=== PATIENT | female | born 1980 | race Caucasian/White ===

== ENCOUNTER → 2016-07-16 | Outpatient (CLI) | payer BC ==
[2016-07-16 18:09] LABS: MEAN CORPUSCULAR HEMOGLOBIN 33.1 pg (27.0-33.0); MEAN CORPUSCULAR HGB CONC 33.9 g/dl (32.0-36.5); MEAN CORPUSCULAR VOLUME 97.7 fl (80.0-96.0); RED CELL DISTRIBUTION WIDTH 13.3 % (11.5-14.5); WHITE BLOOD COUNT 7.9 K/mm3 (4.0-10.0)
== END ==
LOC: M SMT 12:28
PROVIDERS: ATTEND Obstetrics & Gynecology
DX: Z34.82 Encounter for supervision of other normal pregnancy, second trimester (principal)

== ENCOUNTER → 2016-09-12 | Outpatient (REF) | payer BC | LOC: M LAB REF 12:50 | PROVIDERS: ATTEND Obstetrics & Gynecology | DX: Z34.03 Encounter for supervision of normal first pregnancy, third trimester (principal) ==

== ENCOUNTER 2016-10-23 16:00 | Outpatient (CLI) | payer BC ==
[~2016-10-23] VITALS: Ht 162.6 cm; Wt 90.0 kg
[2016-10-23] MEDS ORDERED: VALT500T PO (16:14)
[2016-10-23 16:25] VITALS: BP 120/76
[2016-10-23 18:06] VITALS: BP 117/66
[2016-10-23] MEDS ORDERED: PROMETHAZINE INJ 25 MG/ML VIAL (J2550) IV ONE (20:00)
[2016-10-23] MEDS ORDERED: MORPHINE 10 MG/ML 1ML VIAL IV ONE (20:00)
[2016-10-23] MEDS ORDERED: MORPHINE 10 MG/ML 1ML VIAL SC ONE (20:00)
[2016-10-23 20:58] VITALS: BP 121/63
[2016-10-23 23:14] VITALS: BP 112/60
== END 2016-10-23 23:40 | disposition home or self-care (01) ==
LOC: M LDO 16:00
PROVIDERS: ATTEND Obstetrics & Gynecology
DX: O47.1 False labor at or after 37 completed weeks of gestation (principal); Z3A.40 40 weeks gestation of pregnancy

== ENCOUNTER 2016-10-24 08:40 | Inpatient (IN) | payer BC ==
[2016-10-24] VITALS (43 sets, daily range): BP systolic 99–134; BP diastolic 51–71
[~2016-10-24] VITALS: Ht 162.6 cm; Wt 91.0 kg
[~2016-10-24 08:40] MED LIST: VALT500T PO
--- NOTE | 2016-10-24 09:40 | HPE ---
DATE OF ADMISSION: 10/24/2016 36-year-old, (G) 1, para (P) 0 female at 40 and 3/7 weeks gestation by 6 week ultrasound, expected date of confinement (EDC) 10/21/2016, who presents with regular contractions every 3-4 minutes for the last several hours. She denies vaginal bleeding. There is good movement. The contractions increased in intensity. COURSE: The patient initiated care at 7 weeks gestation on 03/05/2016. Her first trimester blood pressure was 122/70. Weight 170 pounds. She was started on Valtrex for history of genital herpes, but had no outbreaks during the . The remainder of the course was unremarkable. MEDICAL HISTORY: None. SURGICAL HISTORY: None. ALLERGIES: None. SOCIAL HISTORY: The patient is . She denies cigarettes, alcohol or drug use during . FAMILY HISTORY: Noncontributory. PHYSICAL EXAMINATION: Blood pressure 124/78. She appears uncomfortable. Head and Neck Exam: Normal. Lungs: Clear. Heart: Regular rate and rhythm. Abdomen: Nontender. Gravid. heart tones Category 1. Sterile Vaginal Exam: 3 cm, 80% effaced, -2 station, vertex. Contractions every 2-3 minutes. Extremities: Nontender. LABS: Blood type A positive. Rubella immune. RPR nonreactive. Hepatitis B and C negative. HIV negative. Diabetes screen of 84. GBS negative on 09/12/2016. ASSESSMENT: 36-year-old, G1, at 40 and 3/7 weeks gestation who presents in early labor. The patient is admitted on 10/24/2016.
[2016-10-24 10:02] LABS: MEAN CORPUSCULAR HEMOGLOBIN 31.8 pg (27.0-33.0); MEAN CORPUSCULAR HGB CONC 34.4 g/dl (32.0-36.5); MEAN CORPUSCULAR VOLUME 92.4 fl (80.0-96.0); RED CELL DISTRIBUTION WIDTH 14.1 % (11.5-14.5); WHITE BLOOD COUNT 9.7 K/mm3 (4.0-10.0)
[2016-10-24] MEDS ORDERED: FENTANYL 2MCG/ML ROPIVACAINE 0.2% IN 0.9% NACL 200ML IVBAG As Ordered ONE (11:13)
[2016-10-24] MEDS ORDERED: FENTANYL/ROPIVACAINE/NACL BAG 200 ML EPIDURAL SCH (12:30)
[2016-10-24] MEDS ORDERED: REFRIGERATOR IV KEYS XX PRN (12:30)
[2016-10-24] MEDS ORDERED: EPIDURAL COMMENT XX SCH (12:30)
[2016-10-24] MEDS ORDERED: ePHEDrine SULFATE 25 MG/5 ML(5MG/ML) SYRINGE IV PRN (12:30)
[2016-10-24] MEDS ORDERED: ONDANSETRON 4MG/2ML VIAL (J2405) IV PRN (12:30)
[2016-10-24] MEDS ORDERED: diphenhydrAMINE INJ 50MG/ML VIAL (J1200) IV PRN (12:30)
[2016-10-24] MEDS ORDERED: NALOXONE INJ 0.4 MG/1 ML VIAL (J2310) IV PRN (12:30)
[2016-10-24] MEDS ORDERED: OXYTOCIN DRIP 30 UNITS in APPROPRIATE DILUENT 1 EA IV SCH (12:30)
[2016-10-24] MEDS ORDERED: LACTATED RINGER'S 1000 ML IV PRN (12:30)
[2016-10-24] MEDS ORDERED: EPIDURAL/PCA KEYS XX PRN (12:30)
[2016-10-24] MEDS ORDERED: LR 1,000 ML IV SCH (17:30)
[2016-10-25] VITALS (9 sets, daily range): BP systolic 109–127; BP diastolic 53–66
[2016-10-25] MEDS ORDERED: METHYLERGONOVINE MALEATE 0.2 MG/ML VIAL (J2210) As Ordered ONE (00:19)
[2016-10-25 00:58] LABS: CORD GAS ABE V -6.5; CORD GAS HCO3 V 16.6 MEQ/L; CORD GAS O2 SAT V 89.5 %; CORD GAS PCO2 V 26.8 mmHg; CORD GAS PH V 7.41 UNITS; CORD GAS PO2 V 45.4 mmHg; CORD GAS SBC V 19.1 MEQ/L; CORD GAS TCO2 V 17.4 MEQ/L
[2016-10-25] MEDS ORDERED: ONDANSETRON 4MG/2ML VIAL (J2405) IV PRN (01:00)
[2016-10-25] MEDS ORDERED: RHOGAM 300 MCG (1500 IU) INJ (J2790) IM SCH (01:00)
[2016-10-25] MEDS ORDERED: OXYTOCIN DRIP 30 UNITS in APPROPRIATE DILUENT 1 EA IV ONE (01:00)
[2016-10-25] MEDS ORDERED: MEASLES,MUMPS,RUBELLA VACCINE INJ (MMR-II) (90707) SC SCH (01:00)
[2016-10-25] MEDS ORDERED: DIBUCAINE 1% OINTMENT 30GM TOP PRN (01:00)
[2016-10-25] MEDS ORDERED: METHYLERGONOVINE MALEATE 0.2 MG/ML VIAL (J2210) IM ONE (01:00)
[2016-10-25] MEDS ORDERED: DOCUSATE SODIUM 100 MG CAP PO PRN (01:00)
[2016-10-25] MEDS ORDERED: miSOPROStol 200 MCG TAB (S0191) PR ONE (01:00)
[2016-10-25] MEDS ORDERED: METHYLERGONOVINE MALEATE 0.2 MG TAB PO PRN (01:00)
[2016-10-25] MEDS ORDERED: ACETAMINOPHEN 500 MG TAB PO PRN (01:00)
[2016-10-25 01:01] LABS: CORD GAS ABE A -5.8; CORD GAS HCO3 A 16.3 MEQ/L; CORD GAS O2 SAT A 83.5 %; CORD GAS PCO2 A 25.4 mmHg; CORD GAS PH A 7.426 UNITS; CORD GAS PO2 A 38.7 mmHg; CORD GAS SBC A 19.5 MEQ/L; CORD GAS TCO2 A 17.1 MEQ/L
[2016-10-25] MEDS: IBUPROFEN 800 MG TAB PO PRN ×2 (02:02→11:29)
--- NOTE | 2016-10-25 06:21 | DN ---
DATE: 10/24/2016 PREDELIVERY DIAGNOSIS: 40 plus weeks gestation in labor. POSTDELIVERY DIAGNOSIS: 40 plus weeks gestation in labor. PROCEDURE: Spontaneous vaginal delivery. CONTRACT ADMINISTRATION COORDINATOR: Dr. Abner Nance. ANESTHESIA: Epidural. ESTIMATED BLOOD LOSS: 600 mL. FINDINGS: 9 pound, 10 ounce female infant, scores 6 and 9, 4300 grams. DELIVERY SUMMARY: After approximately 60 minutes second stage, the patient spontaneously delivered a 9 pound 10 ounce female infant, scores 6 and 9, under epidural anesthesia. Nuchal cord times one was reduced. Shoulders delivered spontaneously with ease. The infant cried spontaneously and was handed to the mother. The cord was doubly clamped and cut. The placenta delivered spontaneously and appeared to be intact. The patient received intravenous (IV) Pitocin immediately after delivery of the placenta. Excess bleeding was encountered, intrauterine and the blood clot was manually removed from the lower uterine segment. The patient received Methergine 0.2 mg intramuscular (IM) and Cytotec 800 mcg per rectum. Bleeding improved. Estimated blood loss was 600 mL. First-degree perineal laceration was repaired with interrupted suture of 2-0 chromic. Sponge, needle and instrument counts were correct.
[2016-10-25] MEDS: PRENATAL VITAMIN TAB PO SCH (09:24)
[2016-10-26 05:50] VITALS: BP 113/69
[2016-10-26] MEDS: PRENATAL VITAMIN TAB PO SCH (08:06)
[2016-10-26] MEDS ORDERED: PRENTAB9 PO (08:28)
[2016-10-26] MEDS ORDERED: IBUP-1114 PO (08:28)
[2016-10-26] MEDS ORDERED: ACET50TA PO (08:28)
== END 2016-10-26 10:42 | disposition home or self-care (01) | DRG 560 ==
LOC: M LDI 08:40 → M OBS 10-25 02:55
PROVIDERS: ADMIT Specialist; ATTEND Specialist
PROC: 10E0XZZ Delivery of Products of Conception, External Approach (ICD-10-PCS; principal; 2016-10-24)
PROC: 0HQ9XZZ Repair Perineum Skin, External Approach (ICD-10-PCS; 2016-10-24)
DX: O48.0 Post-term pregnancy (principal); O69.82X0 Labor and delivery complicated by other cord entanglement, without compression, not applicable or unspecified; Z37.0 Single live birth; Z3A.40 40 weeks gestation of pregnancy; O70.0 First degree perineal laceration during delivery

== ENCOUNTER 2017-08-04 09:58 | Emergency (ER) | payer BC ==
[2017-08-04 10:52] LABS: BASO % 0.4 % (0.0-1.0); EOS # 0.1 10^3/uL (0.0-0.50); EOS % 0.9 % (0.0-3.0); HEMATOCRIT 36.9 % (36.0-47.0); HEMOGLOBIN 12.2 g/dl (12.0-16.0); IMMATURE GRANULOCYTE % 0.4 % (0-3.0); LYMPH # 2.4 10^3/uL (1.5-4.5); LYMPH % 32.4 % (24.0-44.0); MEAN CORPUSCULAR HEMOGLOBIN 28.8 pg (27.0-33.0); MEAN CORPUSCULAR HGB CONC 33.1 g/dl (32.0-36.5); MONO # 0.5 10^3/uL (0.0-0.8); NEUTROPHILS # 4.5 10^3/uL (1.8-7.7); NEUTROPHILS % 59.9 % (36.0-66.0); PLATELET COUNT, AUTOMATED 273 10^3/uL (150-450); RED BLOOD COUNT 4.24 10^6/uL (4.00-5.40); RED CELL DISTRIBUTION WIDTH 14.2 % (11.5-14.5); WHITE BLOOD COUNT 7.5 10^3/uL (4.0-10.0)
[2017-08-04 10:59] LABS: APPEARANCE, URINE CLEAR (CLEAR); BACTERIA, URINE AUTO NEGATIVE (NEGATIVE); BILIRUBIN, URINE AUTO NEGATIVE (NEGATIVE); BLOOD, URINE BLOOD NEGATIVE (NEGATIVE); COLOR, URINE YELLOW (YELLOW); GLUCOSE, URINE (UA) AUTO NEGATIVE (NEGATIVE); KETONE, URINE AUTO NEGATIVE (NEGATIVE); LEUKOCYTE ESTERASE, URINE AUTO NEGATIVE (NEGATIVE); MUCUS, URINE SMALL (NEGATIVE); NITRITE, URINE AUTO NEGATIVE (NEGATIVE); PROTEIN, URINE AUTO NEGATIVE (NEGATIVE); RBC, URINE AUTO 1 /HPF (0-3); SPECIFIC GRAVITY URINE AUTO 1.028 (1.002-1.035); SQUAMOUS EPITHELIAL CELL UR AU 0 /HPF (0-6); UROBILINOGEN, URINE AUTO 0.2 mg/dL (0.0-2.0); WBC, URINE AUTO 0 /HPF (0-3)
[2017-08-04 11:30] LABS: ANION GAP 7 MEQ/L (8-16); BLOOD UREA NITROGEN 14 MG/DL (7-18); CALCIUM LEVEL 8.6 MG/DL (8.5-10.1); CARBON DIOXIDE LEVEL 26 MEQ/L (21-32); CHLORIDE LEVEL 105 MEQ/L (98-107); CREATININE FOR GFR 0.56 MG/DL (0.55-1.30); GLOMERULAR FILTRATION RATE > 60.0 (>60); GLUCOSE, FASTING 79 MG/DL (70-100); HCG, SERUM QUANTITATIVE 152774 MIU/ML; POTASSIUM SERUM 4.1 MEQ/L (3.5-5.1); SODIUM LEVEL 138 MEQ/L (136-145)
[2017-08-04 11:59] LABS: CONTROL LINE UCG INT CTR LINE PRESENT; URINE PREG TEST NEGATIVE (NEGATIVE)
== END 2017-08-04 12:17 | disposition home or self-care (01) ==
LOC: M ED 09:58
DX: O20.8 Other hemorrhage in early pregnancy (principal); O09.521 Supervision of elderly multigravida, first trimester; Z3A.01 Less than 8 weeks gestation of pregnancy; Z79.899 Other long term (current) drug therapy
CPT/HCPCS: 76801

== ENCOUNTER → 2017-10-01 | Outpatient (CLI) | payer BC ==
[2017-10-01 15:26] LABS: BASO % 0.3 % (0.0-1.0); EOS # 0.2 10^3/uL (0.0-0.50); EOS % 2.6 % (0.0-3.0); HEMATOCRIT 33.2 % (36.0-47.0); HEMOGLOBIN 11.2 g/dl (12.0-15.5); IMMATURE GRANULOCYTE % 0.3 % (0-3.0); LYMPH # 2.7 10^3/uL (1.5-4.5); LYMPH % 33.9 % (24.0-44.0); MEAN CORPUSCULAR HGB CONC 33.7 g/dl (32.0-36.5); MONO # 0.4 10^3/uL (0.0-0.8); MONO % 5.1 % (0.0-5.0); NEUTROPHILS # 4.6 10^3/uL (1.8-7.7); NEUTROPHILS % 57.8 % (36.0-66.0); PLATELET COUNT, AUTOMATED 260 10^3/uL (150-450); RED BLOOD COUNT 3.73 10^6/uL (4.00-5.40); RED CELL DISTRIBUTION WIDTH 14.1 % (11.5-14.5)
[2017-10-01 16:49] LABS: CHLAMYDIA DNA AMPLIFICATION NEGATIVE (NEGATIVE); GC DNA AMPLIFICATION NEGATIVE (NEGATIVE)
[2017-10-03 11:53] LABS: RUBELLA IgG QUALITATIVE IMMUNE (IMMUNE)
[2017-10-03 11:59] LABS: HBsAg Prenatal NEGATIVE (NEGATIVE)
[2017-10-03 12:23] LABS: HIV 1&2 SCREEN CENTAUR NEGATIVE (NEGATIVE)
== END ==
LOC: M WUC 13:26
DX: Z34.81 Encounter for supervision of other normal pregnancy, first trimester (principal)
CPT/HCPCS: 86762

== ENCOUNTER → 2017-10-16 | Outpatient (CLI) | payer BC ==
[2017-10-16 13:39] LABS: HEMATOCRIT 33.8 % (36.0-47.0); HEMOGLOBIN 11.3 g/dl (12.0-15.5); MEAN CORPUSCULAR HEMOGLOBIN 30.5 pg (27.0-33.0); MEAN CORPUSCULAR HGB CONC 33.4 g/dl (32.0-36.5); MEAN CORPUSCULAR VOLUME 91.1 fl (80.0-96.0); PLATELET COUNT, AUTOMATED 204 10^3/uL (150-450); RED BLOOD COUNT 3.71 10^6/uL (4.00-5.40); WHITE BLOOD COUNT 9.1 10^3/uL (4.0-10.0)
== END ==
LOC: M SMT 08:17
DX: Z34.82 Encounter for supervision of other normal pregnancy, second trimester (principal)
CPT/HCPCS: 85027

== ENCOUNTER → 2017-11-20 | Outpatient (CLI) | payer BC | LOC: M RAD 11:12 | DX: Z34.82 Encounter for supervision of other normal pregnancy, second trimester (principal) ==

== ENCOUNTER 2017-12-09 04:02 | Inpatient (IN) | payer BC ==
[2017-12-09] MEDS ORDERED: MAGNESIUM *L&D* 4 GM/100 ML BAG (40MG/ML) (J3475) As Ordered (05:06)
[2017-12-09] MEDS ORDERED: MAGNESIUM SULFATE 4% INJ 20GM/500ML (40MG/ML) (J3475) As Ordered (05:06)
[2017-12-09] MEDS: MAG Sulf (L&D) 4 GM/100 ML 4 GM in APPROPRIATE DILUENT 1 EA IV (05:17)
[2017-12-09] MEDS ORDERED: CALCIUM GLUCONATE 1,000 MG in D5W MINI-BAG PLUS 100 ML IV (05:30)
[2017-12-09] MEDS: MAG Sulf (OBGYN) 20GM/500ML 20,000 MG in APPROPRIATE DILUENT 1 EA IV (05:43)
[2017-12-09] MEDS: LR 1,000 ML IV ×2 (05:43→11:10)
[2017-12-09] MEDS: BETAMETHASONE SOLUSPAN 6MG/ML INJ 5ML (J0702) IM (05:53)
[2017-12-09] MEDS: AMPICILLIN SOD 2 GM in D5W MINI-BAG PLUS 100 ML IV (06:43)
[2017-12-09] MEDS: AZITHROMYCIN 250 MG TAB PO (06:44)
[2017-12-09 06:59] LABS: APPEARANCE, URINE CLEAR (CLEAR); BACTERIA, URINE AUTO NEGATIVE (NEGATIVE); BILIRUBIN, URINE AUTO NEGATIVE (NEGATIVE); BLOOD, URINE BLOOD NEGATIVE (NEGATIVE); COLOR, URINE YELLOW (YELLOW); GLUCOSE, URINE (UA) AUTO NEGATIVE (NEGATIVE); KETONE, URINE AUTO 1+ mg/dL (NEGATIVE); LEUKOCYTE ESTERASE, URINE AUTO NEGATIVE (NEGATIVE); MUCUS, URINE SMALL (NEGATIVE); NITRITE, URINE AUTO NEGATIVE (NEGATIVE); PROTEIN, URINE AUTO NEGATIVE (NEGATIVE); RBC, URINE AUTO 3 /HPF (0-3); SPECIFIC GRAVITY URINE AUTO 1.015 (1.002-1.035); SQUAMOUS EPITHELIAL CELL UR AU 0 /HPF (0-6); UROBILINOGEN, URINE AUTO 0.2 mg/dL (0.0-2.0); WBC, URINE AUTO 1 /HPF (0-3)
[2017-12-09] MEDS: ONDANSETRON 4MG/2ML VIAL (J2405) IV (07:49)
[2017-12-09 08:11] LABS: HEMATOCRIT 32.8 % (36.0-47.0); MEAN CORPUSCULAR HEMOGLOBIN 29.9 pg (27.0-33.0); MEAN CORPUSCULAR HGB CONC 33.5 g/dl (32.0-36.5); MEAN CORPUSCULAR VOLUME 89.1 fl (80.0-96.0); PLATELET COUNT, AUTOMATED 253 10^3/uL (150-450); RED BLOOD COUNT 3.68 10^6/uL (4.00-5.40); RED CELL DISTRIBUTION WIDTH 12.5 % (11.5-14.5); WHITE BLOOD COUNT 15.8 10^3/uL (4.0-10.0)
[2017-12-09] MEDS: BUTORPHANOL 2 MG/ML INJ (J0595) IV (08:15)
[2017-12-09] MEDS: PROMETHAZINE INJ 25 MG/ML VIAL (J2550) IV (08:15)
[2017-12-09] MEDS ORDERED: BICITRA 30ML SOLN UDC As Ordered (08:36)
[2017-12-09] MEDS ORDERED: PORACTANT ALFA 80MG/ML 1.5 ML VIAL(CUROSURF) As Ordered (08:36)
[2017-12-09] MEDS ORDERED: ceFAZolin 2 GM/D5W 50 ML IV BAG (J0690 PER 500MG) As Ordered (08:36)
[2017-12-09] MEDS ORDERED: ONDANSETRON 4MG/2ML VIAL (J2405) As Ordered (08:40)
[2017-12-09] MEDS ORDERED: OXYTOCIN INJ 10 UNITS/ML VIAL (J2590) As Ordered ×7 (08:41→10:09)
[2017-12-09] MEDS ORDERED: MORPHINE PRES-FREE INJ 10 MG/10 ML VIAL (J2274) As Ordered (08:43)
[2017-12-09] MEDS: BICITRA 30ML SOLN UDC PO (08:49)
[2017-12-09] MEDS ORDERED: METOCLOPRAMIDE INJ 10MG/2ML VIAL (J2765) IV (09:00)
[2017-12-09] MEDS ORDERED: NALOXONE INJ 0.4 MG/1 ML VIAL (J2310) IV ×2 (09:00)
[2017-12-09] MEDS: DOCUSATE SODIUM 100 MG CAP PO ×2 (09:00→20:58)
[2017-12-09] MEDS ORDERED: ONDANSETRON 4MG/2ML VIAL (J2405) IV ×3 (09:00→11:15)
[2017-12-09] MEDS ORDERED: NALBUPHINE HCL 10 MG/ML AMP (J2300) IV ×2 (09:00→10:45)
[2017-12-09] MEDS: PRENATAL VITAMINS CHEWABLE TABLET PO (09:00)
[2017-12-09] MEDS ORDERED: PHENYLephrine HCL 500 MCG/5 ML (100MCG/ML) SYRINGE (J2370) As Ordered ×5 (09:06→09:48)
[2017-12-09] MEDS ORDERED: MIDAZOLAM INJ 2 MG/2 ML VIAL (J2250) As Ordered (09:42)
[2017-12-09] MEDS: METHYLERGONOVINE MALEATE 0.2 MG/ML VIAL (J2210) IM (09:46)
[2017-12-09] MEDS ORDERED: fentaNYL 100 MCG/2 ML INJECTION (J3010) As Ordered (10:03)
[2017-12-09] MEDS: miSOPROStol 200 MCG TAB (S0191) PR (10:03)
[2017-12-09] MEDS ORDERED: KETOROLAC 30 MG/ML VIAL (J1885) IV (10:45)
[2017-12-09] MEDS ORDERED: MEPERIDINE INJ 25 MG/ML VIAL (J2175) IV (10:45)
[2017-12-09] MEDS ORDERED: PERCOCET 5MG/325MG TAB PO ×2 (11:15)
[2017-12-09] MEDS ORDERED: PROMETHAZINE 25 MG TAB PO (11:15)
[2017-12-09] MEDS: OXYTOCIN DRIP 30 UNITS in APPROPRIATE DILUENT 1 EA IV (11:17)
[2017-12-09] MEDS: ALBUTEROL SULFATE 2.5 MG/0.5 ML INH NEB SOLN INH (12:20)
[2017-12-09] MEDS: KETOROLAC 30 MG/ML VIAL (J1885) IV ×3 (12:28→23:55)
[2017-12-10] MEDS: RHOGAM 300 MCG (1500 IU) INJ (J2790) IM (03:29)
[2017-12-10] MEDS: MEASLES,MUMPS,RUBELLA VACCINE INJ (MMR-II) (90707) SC (03:30)
[2017-12-10] MEDS: KETOROLAC 30 MG/ML VIAL (J1885) IV (06:09)
[2017-12-10] MEDS: PRENATAL VITAMINS CHEWABLE TABLET PO (08:09)
[2017-12-10] MEDS: DOCUSATE SODIUM 100 MG CAP PO (08:09)
[2017-12-10] MEDS ORDERED: IBUPROFEN 800 MG TAB PO (14:00)
== END 2017-12-10 09:01 | disposition home or self-care (01) | DRG 540 ==
LOC: M LDO 04:02 → M LDI 08:29 → M OBS 11:43
PROC: 10D00Z1 Extraction of Products of Conception, Low, Open Approach (ICD-10-PCS; principal; 2017-12-09 08:52)
DX: O32.1XX0 Maternal care for breech presentation, not applicable or unspecified (principal); O60.14X0 Preterm labor third trimester with preterm delivery third trimester, not applicable or unspecified; O42.013 Preterm premature rupture of membranes, onset of labor within 24 hours of rupture, third trimester; Z37.0 Single live birth; Z3A.35 35 weeks gestation of pregnancy; O34.03 Maternal care for unspecified congenital malformation of uterus, third trimester; O09.523 Supervision of elderly multigravida, third trimester

== ENCOUNTER → 2020-02-09 | Outpatient (REF) | payer BC ==
[~2020-02-09] MED LIST changes: +IBUP-1114 PO; +IBUP80TA PO; +MAPA500T2 PO; +MM S100C PO; +PERCOCET PO; +PRENTAB9 PO; +STOO1CAP9 PO
== END ==
LOC: M SFHCWAGY 11:16
PROVIDERS: ATTEND Obstetrics & Gynecology
DX: Z12.4 Encounter for screening for malignant neoplasm of cervix (principal)
CPT/HCPCS: 87624; G0123